=== PATIENT | female | born 1955 | race Caucasian/White ===

== ENCOUNTER 2019-01-01 08:07 | Day surgery (SDC) | payer MEDICARE, OTHER ==
[~2019-01-01] VITALS: Ht 177.8 cm; Wt 77.6 kg
[2019-01-01] MEDS ORDERED: PROBIOTIC1 EAC2 PO (08:30)
[2019-01-01] MEDS ORDERED: FISH OIL 1,0001 EAC3 PO (08:30)
--- NOTE | 2019-01-01 10:08 | NUR ---
01/01/19 Rebecca8 Marietta Cardozo 1003- PT ARRIVES TO PACU EASILY AROUSABLE TO VOICE. PT FALLS TO SLEEP WHEN NOT BEING TALKED TO. RESP EVEN AND UNLABORED. OXYGEN SAT HIGH 90'S TO 100% ON RA. 1007- PT REPORTS HER ABD TO BE CRAMPING. PT ENCOURAGED TO PASS FLATUS.
--- NOTE | 2019-01-12 17:32 | OR ---
[facility] [address] [facility] [place] [place] [address] Signed DATE OF OPERATION: 01/01/2019 SURGEON: Stoney Garvey MD PREOPERATIVE DIAGNOSIS: Colon screening. POSTOPERATIVE DIAGNOSIS: Normal colon to cecum. PROCEDURE: Total colonoscopy to cecum. ANESTHESIA: Intravenous sedation, fentanyl 100 mcg and Versed 4 mg. INDICATION: This 63-year-old white woman is a patient of Dr. Jude Avilez and has been referred for colon screening. She has not had colonoscopy in the past. She is symptom-free and has no known family history of colon cancer. She is admitted to undergo colonoscopy understanding risks of bleeding, infection, and perforation. FINDINGS: The prep was excellent. Complete colonoscopy was undertaken to the cecum. There was no sign of polyps, diverticular formation, colitis, or cancer. DESCRIPTION OF PROCEDURE: The patient was brought to the endoscopy suite and placed in lateral decubitus position, given intravenous sedation to the point of slurred speech and nystagmus. Digital rectal examination was normal. An Olympus video colonoscope was passed in the rectum and manipulated throughout the colon ultimately intubating the cecum itself. The ileocecal valve and appendiceal orifice were normal. The scope was withdrawn from that point and examination throughout showed no sign of bleeding, diverticular formation, colitis, or cancer. Retroflex view of the rectum was normal. Scope was removed and the patient was taken to recovery room in good condition. CONCLUDING DIAGNOSIS: Normal colon to cecum. Electronically Signed By: STONEY GARVEY MD 01/12/19 1732 PATIENT NAME: STEPHEN NICKERSON OPERATIVE REPORT DATE OF : 51 REPORT #: [id number] PHYSICIAN: STONEY GARVEY MD PCP: JUDE AVILEZ DO REPORT IS CONFIDENTIAL AND NOT TO BE RELEASED WITHOUT AUTHORIZATION [address] [place], [place] [address] Signed PLAN: Recommend repeat colonoscopy in 10 years, sooner if clinically indicated. She will return to the ongoing care of Dr. Avilez. MD PAUL Ricardo/MODL /[id number] cc: Jude Avilez DO Copies: JUDE AVILEZ DO ~ Electronically Signed By: STONEY GARVEY MD 01/12/19 1732 PATIENT NAME: STEPHEN NICKERSON OPERATIVE REPORT DATE OF : 51 REPORT #: [id number] PHYSICIAN: STONEY GARVEY MD PCP: JUDE AVILEZ DO REPORT IS CONFIDENTIAL AND NOT TO BE RELEASED WITHOUT AUTHORIZATION
== END 2019-01-01 10:40 | disposition home or self-care (01) ==
LOC: OPS 08:07 → DS 08:07 → OPS 08:30 → DS 08:30 → OPS 10:40
PROVIDERS: Surgery
PROC: 0DJD8ZZ Inspection of Lower Intestinal Tract, Via Natural or Artificial Opening Endoscopic (ICD-10-PCS; principal; 2019-01-01 08:30)
DX: Z12.11 Encounter for screening for malignant neoplasm of colon (principal); Z88.8 Allergy status to other drugs, medicaments and biological substances; Z90.49 Acquired absence of other specified parts of digestive tract; Z90.711 Acquired absence of uterus with remaining cervical stump
CPT/HCPCS: G0105; 99153; G0500; J2250; J3010; J7121